=== PATIENT | female | born 1945 | race Caucasian/White ===

== ENCOUNTER → 2017-03-05 | Outpatient (CLI) | payer MEDICARE, OTHER ==
[~2017-03-05] MED LIST: ASPIRIN EC81 M1 PO; ATENOLOL25 MG PO; CALTRATE 600 W-1 TAB PO; MULTI-DAY VITAM1 TAB PO; OXYGEN; PANTOPRAZOLE SO40 MG PO; PROAIR HFA8.5 GM INH; PROLIA60 MG/1 ML SQ; SINGULAIR PO; SYMBICORT 160/4.6 G1; SYMBICORT 160/4.6 G1 INH; THEOPHYLLIN PO; VIT C PO; VITAMIN C500 M1 PO
--- NOTE | ~2017-03-05 | MY29 ---
[facility] A Service [facility] RADIOLOGY TEXT RESULTS PATIENT: EPIFANIO TRONCOSO LOCATION: [facility] : 49 UNIT #: [id number] AGE: [address]: BRITNEY CHUN SEX: F ORDER DR: [id number] [facility] [address] [place], [place] [address] [id number] O MR#: [id number] Acc #: [id number] NAME: EPIFANIO TRONCOSO : 1945 SEX: F STUDY DATE/TIME: 03/05/2017 12:58 UNIT: [facility] ROOM: STUDY DESCRIPTION: MY PATEL SCREENING W/ CAD BILAT Attending Physician: Con Boyd Referring Physician: Con Boyd Ordering Physician: Con Boyd Primary Care Physician: Josie Lozano M.D. MEDICAL IMAGING REPORT This report is preliminary unless electronic signature is present EXAM Digital screening mammogram 03/05/2017 HISTORY 71-year-old woman, positive family history, mother postmenopausal. Annual screening. COMPARISON STUDIES 09/30/2009, 07/05/2013, 12/25/2015. FINDINGS Digital imaging of each breast was completed utilizing standard craniocaudal and mediolateral-oblique projections. Review and interpretation of digital mammograms include a second review in conjunction with FDA-approved CAD device. There is an overall increase in the parenchymal presentation bilaterally with a generalized fibronodular pattern in each breast. There are no breast masses and I see no asymmetry in the parenchymal presentation. There are no suspicious microcalcifications and I see no architectural disturbance. IMPRESSION Benign mammogram. One-year followup recommended. Patients over the age of 40 are entered into a reminder system with target due date for the next mammogram. A result letter will also be sent to the patient. BIRADS: 2 Benign finding [facility] A Service [facility] RADIOLOGY TEXT RESULTS PATIENT: EPIFANIO TRONCOSO LOCATION: [facility] : 49 UNIT #: [id number] AGE: [address]: BRITNEY CHUN SEX: F ORDER DR: Dictated by... Shiv Harmon M.D. THIS IS AN ELECTRONICALLY VERIFIED REPORT Shiv Harmon M.D. at 03/06/2017 8:07 AM JBB/pcl TD: 03/05/2017 15:48 JOB #: [id number] MEDICAL IMAGING REPORT Page 1 of 1 COPY
== END | disposition home or self-care (01) ==
LOC: CWCC 12:31
DX: Z12.31 Encounter for screening mammogram for malignant neoplasm of breast (principal); Z80.3 Family history of malignant neoplasm of breast
CPT/HCPCS: G0202